=== PATIENT | male | born 2000 | race Caucasian/White ===

== ENCOUNTER 2019-05-04 14:26 | Emergency (ER) | payer OTHER ==
[~2019-05-04] VITALS: Ht 180.3 cm; Wt 70.0 kg
[~2019-05-04 14:26] MED LIST: AMOXICILLIN500 MG PO; AMOXICILLIN875 MG PO; AUGMENTIN875TAB PO; AURALGAN OT; BENADRYL25 MG PO; BETAMETHASONE 0.05% TOP; BUPROPION100 MG PO; CETIRIZINE10 MG PO; CLARITIN10 M1 PO; FLUARIX QUADRIV1 IN2 IM; FLUOXETINE40 MG PO; GARDASIL IM; HAVRIX720 UNI1 IM; MENACTRA IM; NASONEX50 MCG/AC NAB; NO; SERTRALINE50 MG PO; TESSALON PER100 MG PO; TRAZODONE HCL50 MG PO; VYVANSE40 MG PO; ZOLOFT50 MG PO; [UNRECOGNIZED DRUG - OTHER] PO
[2019-05-04 15:24] VITALS: BP 131/77
== END 2019-05-04 15:30 | disposition home or self-care (01) ==
LOC: ED 14:26
DX: Z03.89 Encounter for observation for other suspected diseases and conditions ruled out (principal)

== ENCOUNTER 2019-05-23 22:18 | Emergency (ER) | payer OTHER ==
[~2019-05-23] VITALS: Ht 180.3 cm; Wt 84.1 kg
[2019-05-23 23:38] LABS: HEMATOCRIT 41.3 % (39.0-50.0); HEMOGLOBIN 14.3 g/dl (14.0-18.0); MEAN CELL VOLUME 88.1 fL CALC (80.0-100.0); MEAN CORPUSCULAR HGB 30.5 pG CALC (26.0-32.0); MEAN CORPUSCULAR HGB CONC 34.6 g/L CALC (32.0-36.0); NEUT# 3.09 thou/uL (1.82-7.42); RED BLOOD COUNT 4.69 mill/uL (4.70-6.10); RED CELL DISTRI WIDTH 11.9 % (11.5-15.5)
[2019-05-23 23:52] LABS: ALBUMIN 4.5 g/dL (3.2-5.0); ALKALINE PHOSPHATASE 54 u/l (38-126); ANION GAP 14 (6-22 (CALC)); BILIRUBIN, TOTAL 0.7 mg/dL (0.0-1.4); BUN 12 mg/dL (9-20); BUN/CREATININE RATIO 13 (12-20 (CALC)); CARBON DIOXIDE 28 mmol/l (22-30); CHLORIDE 103 mmol/l (95-108); CREATININE 0.9 mg/dL (0.7-1.3); GFR > 60 ML/MIN (>=60 (CALC)); GFR FOR AFR.AMER. > 60 ML/MIN (>=60 (CALC)); POTASSIUM 3.8 mmol/l (3.5-5.1); SGOT/AST 23 u/l (17-59); SODIUM 141 mmol/l (137-146); TOTAL PROTEIN 7.5 g/dL (6.3-8.2)
[2019-05-24] MEDS ORDERED: ALLEGRA-D 2424 HOUR PO (02:05)
[2019-05-24 02:15] VITALS: BP 127/76
== END 2019-05-24 02:18 | disposition home or self-care (01) ==
LOC: ED 22:18
PROVIDERS: Family Medicine
DX: J34.89 Other specified disorders of nose and nasal sinuses (principal); R51 Headache

== ENCOUNTER 2019-06-23 19:33 | Emergency (ER) | payer OTHER ==
[~2019-06-23] VITALS: Ht 182.9 cm; Wt 81.8 kg
[~2019-06-23 19:33] MED LIST changes: +ALLEGRA-D 2424 HOUR PO
[2019-06-23 20:31] LABS: URINE BILIRUBIN - DIPSTICK NEGATIVE (NEGATIVE); URINE BLOOD DIPSTICK NEGATIVE (NEGATIVE); URINE COLOR YELLOW; URINE GLUCOSE - DIPSTICK NEGATIVE (NEGATIVE); URINE KETONE NEGATIVE (NEGATIVE); URINE LEUK ESTERASE NEGATIVE (NEGATIVE); URINE NITRITE - DIPSTICK NEGATIVE (Negative); URINE PROTEIN - DIPSTICK NEGATIVE (NEG-TRACE); URINE UROBILINOGEN - DIPSTICK 0.2 E.U./dL (0.2)
[2019-06-23 20:35] LABS: BARBITURATES NEGATIVE (NEGATIVE); COCAINE NEGATIVE (NEGATIVE); METHADONE NEGATIVE (NEGATIVE); OXCYCODONE NEGATIVE (NEGATIVE); TETRAHYDROCANNABIONOL NEGATIVE (NEGATIVE); TRICYLIC ANTIDEPRESSANTS NEGATIVE (NEGATIVE)
[2019-06-23] MEDS ORDERED: AMOXICILLIN500 MG PO (21:04)
[2019-06-23 21:06] VITALS: BP 120/67
== END 2019-06-23 21:10 | disposition home or self-care (01) ==
LOC: ED 19:33
PROVIDERS: Emergency Medicine
DX: J02.9 Acute pharyngitis, unspecified (principal)

== ENCOUNTER 2019-08-27 20:20 | Emergency (ER) | payer MEDICAID ==
[~2019-08-27] VITALS: Ht 182.9 cm; Wt 80.4 kg
[2019-08-27] MEDS ORDERED: VENLAFAXINE HCL75 M1 PO (20:59)
[2019-08-27 21:49] LABS: HEMATOCRIT 47.3 % (39.0-50.0); HEMOGLOBIN 15.8 g/dl (14.0-18.0); IMMATURE GRANULOCYTES 0.3 % (0.0-5.0); MEAN CELL VOLUME 88.2 fL CALC (80.0-100.0); MEAN CORPUSCULAR HGB 29.5 pG CALC (26.0-32.0); MEAN CORPUSCULAR HGB CONC 33.4 g/L CALC (32.0-36.0); NEUT# 3.36 thou/uL (1.82-7.42); RED BLOOD COUNT 5.36 mill/uL (4.70-6.10)
[2019-08-27 22:13] LABS: ALBUMIN 4.8 g/dL (3.2-5.0); ALKALINE PHOSPHATASE 67 u/l (38-126); AMYLASE 84 u/l (30-110); ANION GAP 15 (6-22 (CALC)); BILIRUBIN, TOTAL 0.7 mg/dL (0.0-1.4); BUN 10 mg/dL (9-20); BUN/CREATININE RATIO 15 (12-20 (CALC)); CARBON DIOXIDE 29 mmol/l (22-30); CHLORIDE 100 mmol/l (95-108); CREATININE 0.7 mg/dL (0.7-1.3); GFR > 60 ML/MIN (>=60 (CALC)); GFR FOR AFR.AMER. > 60 ML/MIN (>=60 (CALC)); LIPASE 172 u/l (23-300); POTASSIUM 4.2 mmol/l (3.5-5.1); SGOT/AST 24 u/l (17-59); SODIUM 139 mmol/l (137-146); TOTAL PROTEIN 8.4 g/dL (6.3-8.2)
[2019-08-27 22:39] LABS: URINE BILIRUBIN - DIPSTICK NEGATIVE (NEGATIVE); URINE BLOOD DIPSTICK NEGATIVE (NEGATIVE); URINE COLOR YELLOW; URINE GLUCOSE - DIPSTICK NEGATIVE (NEGATIVE); URINE KETONE NEGATIVE (NEGATIVE); URINE LEUK ESTERASE NEGATIVE (NEGATIVE); URINE NITRITE - DIPSTICK NEGATIVE (Negative); URINE PROTEIN - DIPSTICK NEGATIVE (NEG-TRACE); URINE UROBILINOGEN - DIPSTICK 0.2 E.U./dL (0.2)
[2019-08-28] MEDS ORDERED: ONDANSETRON HCL4 MG PO (00:11)
[2019-08-28] MEDS ORDERED: LOMOTIL2.5 MG PO (00:11)
[2019-08-28 00:35] VITALS: BP 108/67
[2019-09-22] MEDS ORDERED: PREDNISONE50 MG PO (23:48)
== END 2019-08-28 00:35 | disposition home or self-care (01) ==
LOC: ED 20:20
PROVIDERS: Family Medicine
DX: A08.4 Viral intestinal infection, unspecified (principal)

== ENCOUNTER 2019-09-23 | Emergency (ER) | payer SELFPAY ==
[~2019-09-23] MED LIST changes: +LOMOTIL2.5 MG PO; +ONDANSETRON HCL4 MG PO; +PREDNISONE50 MG PO; +VENLAFAXINE HCL75 M1 PO
== END 2019-09-23 01:43 | disposition home or self-care (01) ==
DX: L25.9 Unspecified contact dermatitis, unspecified cause (principal); R51 Headache

== ENCOUNTER 2019-11-24 | Emergency (ER) | payer SELFPAY ==
[2019-11-24] MEDS ORDERED: MEDDOSEPAK PO ×2 (18:33)
== END 2019-11-24 18:50 | disposition home or self-care (01) | DRG 607 ==
DX: L25.9 Unspecified contact dermatitis, unspecified cause (principal)

== ENCOUNTER 2020-03-31 19:45 | Emergency (ER) | payer SELFPAY ==
[~2020-03-31] VITALS: Ht 182.9 cm; Wt 93.0 kg
[~2020-03-31 19:45] MED LIST changes: +MEDDOSEPAK PO
[2020-03-31 20:26] LABS: HEMATOCRIT 44.9 % (39.0-50.0); HEMOGLOBIN 15.1 g/dl (14.0-18.0); IMMATURE GRANULOCYTES 0.1 % (0.0-5.0); MEAN CELL VOLUME 87.2 fL CALC (80.0-100.0); MEAN CORPUSCULAR HGB 29.3 pG CALC (26.0-32.0); MEAN CORPUSCULAR HGB CONC 33.6 g/dL CAL (32.0-36.0); NEUT# 4.77 thou/uL (1.82-7.42); RED BLOOD COUNT 5.15 mill/uL (4.70-6.10); RED CELL DISTRI WIDTH 11.9 % (11.5-15.5)
[2020-03-31 20:26] LABS: URINE BILIRUBIN - DIPSTICK NEGATIVE (NEGATIVE); URINE BLOOD DIPSTICK NEGATIVE (NEGATIVE); URINE COLOR YELLOW; URINE GLUCOSE - DIPSTICK NEGATIVE (NEGATIVE); URINE KETONE NEGATIVE (NEGATIVE); URINE LEUK ESTERASE NEGATIVE (NEGATIVE); URINE NITRITE - DIPSTICK NEGATIVE (Negative); URINE PROTEIN - DIPSTICK NEGATIVE (NEG-TRACE); URINE SPECIFIC GRAVITY <=1.005; URINE UROBILINOGEN - DIPSTICK 0.2 E.U./dL (0.2)
[2020-03-31 20:36] LABS: ALBUMIN 4.8 g/dL (3.2-5.0); ALKALINE PHOSPHATASE 70 u/l (38-126); ANION GAP 10 (6-22 (CALC)); BILIRUBIN, TOTAL 0.7 mg/dL (0.0-1.4); BUN 11 mg/dL (9-20); BUN/CREATININE RATIO 12 (12-20 (CALC)); CARBON DIOXIDE 30 mmol/l (22-30); CHLORIDE 99 mmol/l (95-108); CREATININE 0.9 mg/dL (0.7-1.3); GFR > 60 ML/MIN (>=60 (CALC)); GFR FOR AFR.AMER. > 60 ML/MIN (>=60 (CALC)); POTASSIUM 3.7 mmol/l (3.5-5.1); SGOT/AST 29 u/l (17-59); SODIUM 136 mmol/l (137-146)
[2020-03-31 22:24] VITALS: BP 113/72
== END 2020-03-31 23:25 | disposition home or self-care (01) | DRG 730 ==
LOC: ED 19:45
PROVIDERS: Emergency Medicine
DX: N50.82 Scrotal pain (principal)

== ENCOUNTER 2022-08-07 23:22 | Emergency (ER) | payer SELFPAY ==
[~2022-08-07] VITALS: Ht 182.9 cm; Wt 104.0 kg
[2022-08-07 23:39] VITALS: BP 126/83
[2022-08-07 23:45] VITALS: BP 120/82
[2022-08-08 02:25] VITALS: BP 120/82
== END 2022-08-08 02:40 | disposition home or self-care (01) | DRG 392 ==
LOC: ED 23:22
DX: K59.01 Slow transit constipation (principal); F41.8 Other specified anxiety disorders

== ENCOUNTER 2024-03-27 23:56 | Emergency (ER) | payer SELFPAY ==
[~2024-03-27] VITALS: Ht 182.9 cm; Wt 90.7 kg
[2024-03-28 01:17] LABS: BASO% 0.3 % (0-3); EOS% 0.3 % (0-8); HEMATOCRIT 44.5 % (39.0-50.0); HEMOGLOBIN 14.9 g/dl (14.0-18.0); IMMATURE GRANULOCYTES 0.1 % (0.0-5.0); LYMPH% 29.3 % (15-41); MEAN CELL VOLUME 89.9 fL CALC (80.0-100.0); MEAN CORPUSCULAR HGB 30.1 pG CALC (26.0-32.0); MEAN CORPUSCULAR HGB CONC 33.5 g/dL CAL (32.0-36.0); MONO% 6.8 % (2-13); NEUT# 4.4 thou/uL (1.82-7.42); NEUT% 63.2 % (42-76); RED BLOOD COUNT 4.95 mill/uL (4.70-6.10); RED CELL DISTRI WIDTH 11.8 % (11.5-15.5)
[2024-03-28 01:40] LABS: ALBUMIN 4.8 g/dL (3.2-5.0); BILIRUBIN, TOTAL 0.8 mg/dL (0.2-1.3); POTASSIUM 4.2 mmol/l (3.5-5.1)
[2024-03-28] MEDS ORDERED: IMITREX100 M1 PO (01:44)
[2024-03-28 02:19] VITALS: BP 130/87
== END 2024-03-28 02:19 | disposition home or self-care (01) | DRG 103 ==
LOC: ED 23:56
PROVIDERS: Family Medicine
DX: G43.109 Migraine with aura, not intractable, without status migrainosus (principal); F41.9 Anxiety disorder, unspecified; F32.A Depression, unspecified; Z20.822 Contact with and (suspected) exposure to COVID-19

== ENCOUNTER 2024-08-30 23:58 | Emergency (ER) | payer SELFPAY ==
[~2024-08-30] VITALS: Ht 182.9 cm; Wt 96.0 kg
[~2024-08-30 23:58] MED LIST changes: +IMITREX100 M1 PO
[2024-08-31 00:37] VITALS: BP 136/90
== END 2024-08-31 00:38 | disposition home or self-care (01) | DRG 195 ==
LOC: ED 23:58
DX: J10.1 Influenza due to other identified influenza virus with other respiratory manifestations (principal); F41.9 Anxiety disorder, unspecified; F32.A Depression, unspecified